=== PATIENT | male | born 1970 | race Caucasian/White ===

== ENCOUNTER 2019-12-02 10:55 | Emergency (ER) | payer OTHER ==
[~2019-12-02] VITALS: Ht 327.7 cm; Wt 114.0 kg
[2019-12-02] MEDS ORDERED: METO-467 PO (12:39)
[2019-12-02] MEDS ORDERED: ATOR10TA PO (12:41)
[2019-12-02] MEDS ORDERED: METF500T PO (12:43)
--- NOTE | 2019-12-02 13:00 | NUR ---
resting no s.s of distress
--- NOTE | 2019-12-02 13:10 | NUR ---
Breaking primary RN, pt. given lunch tray.
[2019-12-02 13:15] LABS: BASOPHILS % (AUTO) 0.6 % (0-1); EOSINOPHILS # (AUTO) 0.1 X10'3 (0-0.9); HEMOGLOBIN 15.2 g/dl (14.0-17.9); LYMPHOCYTES # (AUTO) 1.9 X10'3 (1.1-4.8); LYMPHOCYTES % (AUTO) 30.5 % (21-51); MEAN CORPUSCULAR HEMOGLOBIN 28.8 PG (27.0-31.0); MEAN CORPUSCULAR HGB CONC 33.8 g/dL (33.0-36.5); MEAN CORPUSCULAR VOLUME 85.2 FL (78-98); MEAN PLATELET VOLUME 7.2 FL (7.4-10.4); MONOCYTES # (AUTO) 0.3 X10'3 (0-0.9); MONOCYTES % (AUTO) 5.3 % (2-12); NEUTROPHILS # (AUTO) 3.8 X10'3 (1.8-7.7); NEUTROPHILS % (AUTO) 61.6 % (42-75); PLATELET COUNT 230 X10'3 (140-440); RED BLOOD COUNT 5.28 X10'6 (4.70-6.10); RED CELL DISTRIBUTION WIDTH 13.4 % (11.5-14.5); WHITE BLOOD COUNT 6.2 X10'3 (4.5-11.0)
[2019-12-02 13:21] LABS: URINE AMPHETAMINE SCREEN NEGATIVE (Neg); URINE BARBITUATE SCREEN NEGATIVE (Neg); URINE BENZODIAZEPINES SCREEN NEGATIVE (Neg); URINE CANNABINOID SCREEN NEGATIVE (Neg); URINE COCAINE SCREEN NEGATIVE (Neg); URINE METHADONE SCREEN NEGATIVE (Neg); URINE OPIATE SCREEN NEGATIVE (Neg); URINE PHENCYCLIDINE SCREEN NEGATIVE (Neg)
[2019-12-02 13:28] LABS: ALANINE AMINOTRANSFERASE 25 U/L (12-78); ALBUMIN 3.1 G/DL (3.4-5.0); ALBUMIN/GLOBULIN RATIO 0.8 (1.1-1.5); ALKALINE PHOSPHATASE 217 IU/L (46-116); ANION GAP 4 (8-16); ASPARTATE AMINO TRANSFERASE 15 U/L (10-37); BILIRUBIN,TOTAL 0.6 MG/DL (0.1-1.0); BLOOD UREA NITROGEN 17 MG/DL (7-18); BUN/CREATININE RATIO 14.3 (5.4-32.0); CALCIUM 8.6 MG/DL (8.5-10.1); CHLORIDE 105 MMOL/L (99-107); CREATININE 1.19 MG/DL (0.60-1.10); ETHANOL < 0.010 GM/DL (0.0-0.010); GLUCOSE 258 MG/DL (70-104); POTASSIUM 4.2 MMOL/L (3.5-5.1); SODIUM 138 MMOL/L (135-145); TOTAL CARBON DIOXIDE 28.8 MMOL/L (24-32); TOTAL PROTEIN 7.1 G/DL (6.4-8.2); eGFR 65 ML/MIN
[2019-12-02] MEDS ORDERED: enoxaparin 100mg/ml syringe SUBCUT ONE (13:45)
[2019-12-02] MEDS ORDERED: enoxaparin 80mg/0.8ml syringe SUBCUT ONE (13:50)
[2019-12-02] MEDS ORDERED: enoxaparin 30mg/0.3ml syringe SUBCUT ONE (13:50)
--- NOTE | 2019-12-02 14:00 | NUR ---
resting no s.s of distress
[2019-12-02] MEDS ORDERED: APIX5TAB3 PO (14:14)
--- NOTE | 2019-12-02 15:00 | NUR ---
resting no s.s of distress
--- NOTE | 2019-12-02 16:00 | NUR ---
resting no s.s of distress
--- NOTE | 2019-12-02 17:00 | NUR ---
resting no s.s of distress
--- NOTE | 2019-12-02 18:00 | NUR ---
resting no s.s of distress
--- NOTE | 2019-12-02 18:40 | NUR ---
Received report and assumed care of patient from KRYSTLE Lai. The patient is resting on his bed. No s/s of distress.
[2019-12-02 19:18] LABS: CLARITY,URINE CLEAR (Clear); COLOR,URINE YELLOW (Yellow); GLUCOSE, URINE 500 mg/dl (Neg); KETONES,URINE 40 mg/dl (Neg); LEUKOCYTE ESTERASE ,URINE NEGATIVE (Neg); NITRITES, URINE NEGATIVE (Neg); OCCULT BLOOD,URINE TRACE-INTACT (Neg); PROTEIN,URINE NEGATIVE (Neg); UROBILINOGEN,URINE 0.2 E.U/dL (0.2-1.0)
[2019-12-02 19:23] LABS: BACTERIA,URINE FEW /HPF (Neg); MUCUS STRANDS FEW /LPF (Neg); RBC,URINE 0-2 /HPF (0-2); SQUAMOUS EPITHELIAL CELL,UR FEW /LPF (FEW); UA COLLECTION TYPE CLN CATCH MIDSTREAM; WBC,URINE 0-4 /HPF (0-4)
--- NOTE | 2019-12-02 19:34 | NUR ---
The patient is being evaluated by KRYSTLE Bartholomew from [facility].
[2019-12-02] MEDS ORDERED: METF-436 PO (20:53)
[2019-12-02] MEDS ORDERED: ATOR10TA70 PO (20:53)
[2019-12-02] MEDS ORDERED: diphenhydrAMINE 25mg capsule PO ONE (21:45)
[2019-12-02] MEDS ORDERED: gabapentin 100mg capsule PO ONE (21:45)
[2019-12-02] MEDS ORDERED: acetaminophen 325mg tablet PO ONE (21:50)
--- NOTE | 2019-12-03 03:07 | NUR ---
PT SLEEPING. LYINING ON HIS LEFT SIDE WITH BLANKETS COVERING TO HIS CHEST. RR 14 AND UNLABORED. SITTER AND RN WITHIN VIEW OF PT AAT.
[2019-12-03 05:12] VITALS: BP_DIAS 77
--- NOTE | 2019-12-03 07:00 | NUR ---
Received Pt in bed sleeping w/o distress. Received report and continue to monitor Pt.
[2019-12-03] MEDS ORDERED: apixaban 5mg tablet PO SCH (08:00)
[2019-12-03] MEDS ORDERED: atorvastatin 10mg tablet PO SCH (08:00)
[2019-12-03] MEDS ORDERED: metFORMIN 500mg tablet PO SCH (08:00)
[2019-12-03] MEDS ORDERED: metoprolol tartrate 50mg tablet PO SCH (08:00)
[2019-12-03 08:27] VITALS: BP_SYST 130
--- NOTE | 2019-12-03 08:30 | NUR ---
Pt awoke and ate breakfast. He took AM medications except metformin, due to having received contrast in the last 48 hrs. Pt remains depressed and hopeless r/t not having money and unable to find work. Pleasant and cooperative in conversation.
--- NOTE | 2019-12-03 10:00 | NUR ---
Received call from [facility] stating Pt has been accepted at [facility]. Talked with charge nurse at [facility] who stated they will be accepting Pt and nurse to nurse report given.
[2019-12-03] MEDS ORDERED: GABA-532 PO (12:33)
== END 2019-12-03 11:05 ==
LOC: ER 10:55
DX: R45.851 Suicidal ideations (principal); R07.9 Chest pain, unspecified; R06.02 Shortness of breath; I26.99 Other pulmonary embolism without acute cor pulmonale; I25.2 Old myocardial infarction; F17.200 Nicotine dependence, unspecified, uncomplicated; Z98.890 Other specified postprocedural states; Z88.0 Allergy status to penicillin; Z79.899 Other long term (current) drug therapy
CPT/HCPCS: 36415; 80053; 80305; 80320; 81001; 82948; 84443; 85025; 96372; 99285; J1650; Q0163

== ENCOUNTER 2019-12-03 10:22 | Inpatient (IN) | payer OTHER ==
[~2019-12-03] VITALS: Ht 175.3 cm; Wt 124.0 kg
[~2019-12-03 10:22] MED LIST: APIX5TAB3 PO; ATOR10TA PO; ATOR10TA70 PO; METF-436 PO; METF500T PO; METO-467 PO
[2019-12-03] MEDS ORDERED: loperamide 2mg capsule PO PRN (10:30)
[2019-12-03] MEDS ORDERED: diphenhydrAMINE 25mg capsule PO PRN (10:30)
[2019-12-03] MEDS ORDERED: magnesium hydroxide 30ml (MOM) UD suspension PO PRN (10:30)
[2019-12-03] MEDS ORDERED: acetaminophen 325mg tablet PO PRN (10:30)
[2019-12-03] MEDS ORDERED: hydrOXYzine 25 MG tablet PO PRN (10:30)
[2019-12-03] MEDS ORDERED: haloperidol 5mg tablet PO PRN (10:30)
[2019-12-03] MEDS ORDERED: mag hydrox/Alum hydrox/simeth 30ml oral suspension PO PRN (10:30)
--- NOTE | 2019-12-03 12:09 | NUR ---
Admit note: Pt admitted to [facility] on 5150 at 1100 for DTS. PT presents depressed, hopeless, helpless and suicidal. Pt has a plan to overdose on his sleeping pills. Pt is from [place]. 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 PT ran out of gas and money here in [place] and homeless sleeping in his car. Pt has history of Diabetes, MD, heart stents, PE.
[2019-12-03] MEDS ORDERED: GABA-532 PO (12:33)
[2019-12-03] MEDS: acetaminophen 325mg tablet PO PRN (14:32)
--- NOTE | 2019-12-03 14:43 | NUR ---
NURSING PROGRESS NOTE Legal hold: 5150 Client on involuntary status for DTS Report received from nurse JENNIFER Carlisle Why are they here: Pt presented to the ER complaining of suicidal ideation. Patient reports he has pretty much lost everything and everyone and he no longer wants to be around anymore. He had a plan to take sleeping pills which he has in his car. Hx of OD x1. When asked if he has any friends or family patient reports that he has brothers but states that "they are not family." Patient notes that he was seen at [facility] last night complaining of some SOB and was diagnosed with "blood clots in his lungs." Patient dates he was given a shot and discharged. Currently he has some left-sided chest pain and some intermittent shortness of breath which he reports is pretty typical for him. He has a history of NM 8 to 9 years ago with 4 stents placed. Patient also complains of some burning with urination and thinks he may be dehydrated. He denies any penile discharge, rash or recent unprotected sex. Assessment What has happened this shift: Pt admitted @1100. He took a shower was oriented to the unit then had lunch. He later watched TV and played cards with another resident. Pt c/o 'sinus pain" and was given Tylenol. S/I, H/I: SI; denies HI A/VH: Denies Sleep: Up this shift ADL's: Independent; showered Group attendance: attended a [employer] social distancing group Were Meds taken: PRN Any med S/E: N/A Mental Status Exam Appearance: average height slightly overweight man with short brown hair in need of a shave Eye contact: Fair Behavior: Calm Speech: low volume; normal rate and rhythm Mood: depressed; hopeless Affect: flat Thought process: Suicidal ideation to overdose on pills Thought Content: "has lost the will to live" Cognition: A/O x3 Insight: Fair Judgment: Poor Interventions PRN's used: Tylenol Therapeutic interventions: Provided 1:1 therapeutic communication and active listening throughout the admission process; PRN Tylenol given for pain in his sinuses, q 15min safety checks. Restraints/seclusion/emergency medication: N/A Justification: Pt is in need of a safe and supportive environment due to his plan of suicidal thoughts to overdose using the pills that are currently in the car he has been living in.
[2019-12-03] MEDS ORDERED: dextrose ORAL solution 15 GM/59 ML bottle PO PRN ×2 (17:20)
[2019-12-03] MEDS ORDERED: glucagon, human recombinant 1mg kit SUBCUT PRN (17:20)
[2019-12-03] MEDS: insulin Lispro (HumaLOG) vial - multi-dose SQ SCH (19:33)
[2019-12-03 20:00] VITALS: BP 133/78
[2019-12-03] MEDS ORDERED: metFORMIN 500mg tablet PO SCH (20:00)
[2019-12-03] MEDS: insulin glargine (Lantus) pen - multi-dose SQ SCH (21:03)
[2019-12-03] MEDS: gabapentin 300mg capsule PO SCH (21:07)
[2019-12-03] MEDS: metoprolol tartrate 50mg tablet PO SCH (21:07)
[2019-12-03] MEDS: apixaban 5mg tablet PO SCH (21:08)
[2019-12-03] MEDS: traZODone 50mg tablet PO PRN (21:57)
--- NOTE | 2019-12-04 | NUR ---
NURSING PROGRESS NOTE Legal hold: 5150 Client on involuntary status for DTS Report received from nurse JENNIFER Carlisle Why are they here: Pt presented to the ER complaining of suicidal ideation. Patient reports he has pretty much lost everything and everyone and he no longer wants to be around anymore. He had a plan to take sleeping pills which he has in his car. Hx of OD x1. When asked if he has any friends or family patient reports that he has brothers but states that "they are not family." Patient notes that he was seen at [facility] last night complaining of some SOB and was diagnosed with "blood clots in his lungs." Patient dates he was given a shot and discharged. Currently he has some left-sided chest pain and some intermittent shortness of breath which he reports is pretty typical for him. He has a history of OK 8 to 9 years ago with 4 stents placed. Patient also complains of some burning with urination and thinks he may be dehydrated. He denies any penile discharge, rash or recent unprotected sex. Assessment What has happened this shift: Patient was up and in group room watching tv. He denied SI and HI at this time. Pt BS was 242 and his Lantus given. Pt requested a prn for sleep and went to bed after meds. S/I, H/I: SI; denies HI A/VH: Denies Sleep: Up this shift ADL's: Independent; showered Group attendance: attended a [employer] social distancing group Were Meds taken: PRN Any med S/E: N/A Mental Status Exam Appearance: average height slightly overweight man with short brown hair in need of a shave Eye contact: Fair Behavior: Calm Speech: low volume; normal rate and rhythm Mood: depressed; hopeless Affect: flat Thought process: Suicidal ideation to overdose on pills Thought Content: "has lost the will to live" Cognition: A/O x3 Insight: Fair Judgment: Poor Interventions PRN's used: Trazodone Therapeutic interventions: Provided 1:1 therapeutic communication and active listening throughout the admission process; PRN Tylenol given for pain in his sinuses, q 15min safety checks. Restraints/seclusion/emergency medication: N/A Justification: Pt is in need of a safe and supportive environment due to his plan of suicidal thoughts to overdose using the pills that are currently in the car he has been living in.
[2019-12-04 07:45] LABS: CHOL/HDL RATIO 6.9 (0.00-4.99); CHOLESTEROL 194 MG/DL (0-200); HDL CHOLESTEROL 28 MG/DL (35-60); LDL CHOLESTEROL 139 MG/DL (50-100); TRIGLYCERIDES 185 MG/DL (20-135)
[2019-12-04 07:49] LABS: HEMOGLOBIN A1C 10.4 % (4.5-6.2)
[2019-12-04 08:00] VITALS: BP 133/69
[2019-12-04] MEDS ORDERED: atorvastatin 10mg tablet PO SCH (08:00)
[2019-12-04] MEDS: gabapentin 300mg capsule PO SCH ×2 (08:24→21:01)
[2019-12-04] MEDS: apixaban 5mg tablet PO SCH ×2 (08:24→21:02)
[2019-12-04] MEDS: metoprolol tartrate 50mg tablet PO SCH ×2 (08:24→21:02)
[2019-12-04] MEDS: metFORMIN 500mg tablet PO SCH ×2 (08:35→20:00)
[2019-12-04] MEDS: insulin Lispro (HumaLOG) vial - multi-dose SQ SCH ×3 (08:43→18:27)
--- NOTE | 2019-12-04 12:34 | NUR ---
DM Consult: A1C 10.4. Pt admit w/ SI s/p taking sleeping pills in car where he lives and hx prior OD on sleeping pills per note. Pt not appropriate for DM ed at this time. Addendum: 12/04/19 at [address] Amended: Links added.
[2019-12-04 15:20] VITALS: BP 141/78
--- NOTE | 2019-12-04 15:35 | NUR ---
NURSING PROGRESS NOTE Legal hold: 5150 Client on involuntary status for DTS Report received from nurse Holloway RN Why are they here: Pt presented to the ER complaining of suicidal ideation. Patient reports he has pretty much lost everything and everyone and he no longer wants to be around anymore. He had a plan to take sleeping pills which he has in his car. Hx of OD x1. When asked if he has any friends or family patient reports that he has brothers but states that "they are not family." Patient notes that he was seen at [facility] last night complaining of some SOB and was diagnosed with "blood clots in his lungs." Patient dates he was given a shot and discharged. Currently he has some left-sided chest pain and some intermittent shortness of breath which he reports is pretty typical for him. He has a history of ME 8 to 9 years ago with 4 stents placed. Patient also complains of some burning with urination and thinks he may be dehydrated. He denies any penile discharge, rash or recent unprotected sex. Assessment What has happened this shift: Pt rated his depression today at a 9/10. He continues to endorse SI with a plan to OD on pills, contracts for safety here. Pt denies AH/VH/HI. Pt has 2+ pitting edema left pretibial and trace left ankle edema, some brownish discoloration of skin of left [place]. 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 Pt states that he has no history of DVTs or PEs in the past, "this is all new for me." Asked pt if he had ever been on blood thinners before. Pt stated he may have been a long time ago. Pt has a HX of ME with 4 stents placed 9 years ago, pt is a diabetic. Pt reported that he had been having diarrhea for about a week, reports he went 8 times yesterday. So far no episodes of diarrhea today. Lungs are clear bilaterally. While this RN was at lunch, pt c/o chest pain. C/o right sided chest pain radiating to right jaw. Pt appeared diaphoretic. Pt also c/o right side pain, right leg "burning", and a NOVA. VS: 141/78, 66, 18, 99% on RA. An EKG was done and read by ER MD, sinus rhythm, normal EKG. Pt's lungs were clear to auscultation, pedal and radial pulses WNL. Pt currently states that the pain has subsided. He is no longer having chest pain, he still has some mild right sided jaw pain and a NOVA which he rates as a 3/10. The hospitalist was notified. Dr Dietz called and said no new orders, just monitor the patient. Dr Grant came to see the patient. It was determined that pt is a smoker, was smoking a pack a day. Pt declined a nicotine patch stating that he is not having nicotine cravings. Pt also reported a Hx of osteomyelitis of his right jaw from dental infection. Dr Grant wll consult with Dr House about possible further testing or cardiac monitoring. S/I, H/I: +SI with plan to OD on pills. A/VH: Pt denies. Sleep: Pt slept 7 hours last night per noc shift report. ADL's: Independent Group attendance: No groups today. Were Meds taken: yes Any med S/E: None noted or reported. Mental Status Exam Appearance: Clean, appropriate, large balding man wearing glasses. Eye contact: Good Behavior: Calm, cooperative Speech: Clear, audible, normal rate and rhythm. Mood: Depressed Affect: Blunted, depressed Thought process: Linear Thought Content: Ruminates on hopelessness of his situation. Cognition: A/O X 4 Insight: Fair Judgment: Fair Interventions PRN's used: None Therapeutic interventions: 1:1 assessment, establishment of rapport, encouragement to express thoughts and feelings, active listening, therapeutic conversation, ensured contract for safety, Q 15min safety checks. Restraints/seclusion/emergency medication: N/A Justification: Pt needs crisis interruption and medication adjustment and monitoring in a safe and therapeutic environment to prevent self harm. Pt is homeless.
--- NOTE | 2019-12-04 17:04 | NUR ---
Spoke with [employer] Offbearer about moving pt to Tele. PT will be moved on Noc shift.
[2019-12-04] MEDS: acetaminophen 325mg tablet PO PRN ×2 (18:01→23:27)
--- NOTE | 2019-12-04 18:02 | NUR ---
CORRECTION: Pt states his history of osteomyelitis and jaw surgery was on his left side not his right. Pt continues to c/o mild to mod right jaw pain, "it just feels weird." PRN Tylenol given at 1801. Plan is for pt to be transferred to a telemetry unit [facility] for monitoring.
[2019-12-04 19:30] VITALS: BP 116/68
[2019-12-04] MEDS: insulin glargine (Lantus) pen - multi-dose SQ SCH (21:06)
[2019-12-04] MEDS: mirtazapine 15mg tablet PO SCH (21:23)
--- NOTE | 2019-12-04 21:52 | NUR ---
TRANSFER NOTE Patient transferred to tele at 2130 Vt's 116/68 R16 P76 T98.4 Report given to tele nurse. And pt left via Wheel chair with estela escort.
[2019-12-04 22:00] VITALS: BP 115/69
--- NOTE | 2019-12-04 22:00 | NUR ---
Arrived on PCU at approx 2200 transferred from wheelchair to bed. Sitter in room, 2 RN skin check completed, vital signs obtained and stable. Will continue to monitor.
[2019-12-04] MEDS: traZODone 50mg tablet PO PRN (22:26)
[2019-12-04] MEDS: LORazepam 1 MG tablet PO PRN (22:45)
[2019-12-04] MEDS ORDERED: nitroGLYCERIN 0.4mg SUBLingual tab SL PRN (23:10)
[2019-12-04 23:29] VITALS: BP 106/65
[2019-12-05 02:05] LABS: BASOPHILS # (AUTO) 0.1 X10'3 (0-0.2); BASOPHILS % (AUTO) 0.7 % (0-1); EOSINOPHILS # (AUTO) 0.1 X10'3 (0-0.9); HEMATOCRIT 39.2 % (42.0-52.0); HEMOGLOBIN 13.3 g/dl (14.0-17.9); LYMPHOCYTES # (AUTO) 2.7 X10'3 (1.1-4.8); LYMPHOCYTES % (AUTO) 37.8 % (21-51); MEAN CORPUSCULAR HGB CONC 33.9 g/dL (33.0-36.5); MEAN CORPUSCULAR VOLUME 85.5 FL (78-98); MEAN PLATELET VOLUME 7.3 FL (7.4-10.4); MONOCYTES # (AUTO) 0.5 X10'3 (0-0.9); NEUTROPHILS # (AUTO) 3.7 X10'3 (1.8-7.7); NEUTROPHILS % (AUTO) 52.5 % (42-75); PLATELET COUNT 200 X10'3 (140-440); RED BLOOD COUNT 4.59 X10'6 (4.70-6.10); RED CELL DISTRIBUTION WIDTH 13.4 % (11.5-14.5); WHITE BLOOD COUNT 7.1 X10'3 (4.5-11.0)
[2019-12-05 02:15] LABS: ALANINE AMINOTRANSFERASE 28 U/L (12-78); ALBUMIN 2.6 G/DL (3.4-5.0); ALBUMIN/GLOBULIN RATIO 0.8 (1.1-1.5); ALKALINE PHOSPHATASE 171 IU/L (46-116); ANION GAP 8 (8-16); ASPARTATE AMINO TRANSFERASE 28 U/L (10-37); BILIRUBIN,TOTAL 0.4 MG/DL (0.1-1.0); BLOOD UREA NITROGEN 18 MG/DL (7-18); CALCIUM 8.4 MG/DL (8.5-10.1); CHLORIDE 106 MMOL/L (99-107); GLUCOSE 148 MG/DL (70-104); POTASSIUM 3.4 MMOL/L (3.5-5.1); SODIUM 138 MMOL/L (135-145); TOTAL CARBON DIOXIDE 24.5 MMOL/L (24-32); eGFR 79 ML/MIN
[2019-12-05] MEDS ORDERED: potassium CL 10mEq/100ml bag 100 ML IV PRN (03:05)
[2019-12-05] MEDS: K and/or MAG REPLACEMENT MC SCH ×3 (03:05→19:18)
[2019-12-05] MEDS ORDERED: magnesium Cl slow-release 64mg tablet PO PRN (03:05)
[2019-12-05] MEDS ORDERED: potassium Cl 20 mEq SR tablet PO PRN (03:05)
[2019-12-05] MEDS ORDERED: magnesium 4gm in 100ml NS 100 ML IV PRN (03:05)
[2019-12-05 03:37] LABS: MAGNESIUM 1.5 MG/DL (1.5-2.4)
--- NOTE | 2019-12-05 03:52 | NUR ---
I have reviewed and agree with all medications administered and interventions performed by Kandace. KRYSTLE Orientee documentation: I have reviewed and agree with all interventions, assessments performed and documented by KRYSTLE Jeronimo.
[2019-12-05] MEDS: potassium Cl 20 mEq SR tablet PO PRN ×2 (04:37→19:16)
[2019-12-05 06:08] LABS: PARTIAL THROMBOPLASTIN TIME 30 SECONDS (22-32)
--- NOTE | 2019-12-05 06:23 | NUR ---
Problems reprioritized. Patient report given, questions answered & plan of care reviewed with ranjit Judd.
--- NOTE | 2019-12-05 06:30 | NUR ---
Patient in room U 3011. I have received report from KRYSTLE Leblanc and had the opportunity to ask questions and assume patient care. Patient is currently sleeping in bed, bed locked and low, call light in reach, sitter in room, no acute distress, will continue to monitor.
[2019-12-05 08:00] VITALS: BP 127/82
[2019-12-05] MEDS ORDERED: metFORMIN 500mg tablet PO SCH (08:00)
[2019-12-05] MEDS: insulin Lispro (HumaLOG) vial - multi-dose SQ SCH ×3 (08:37→19:22)
[2019-12-05] MEDS: gabapentin 300mg capsule PO SCH ×2 (08:37→19:16)
[2019-12-05] MEDS: atorvastatin 20mg tablet PO SCH (08:38)
[2019-12-05] MEDS: metFORMIN 500mg tablet PO SCH ×2 (08:40→19:17)
[2019-12-05] MEDS: metoprolol tartrate 50mg tablet PO SCH ×2 (08:40→19:16)
[2019-12-05] MEDS: apixaban 5mg tablet PO SCH ×2 (08:41→19:15)
[2019-12-05 11:00] VITALS: BP 113/67
[2019-12-05 15:00] VITALS: BP 122/71
[2019-12-05 18:00] VITALS: BP 122/71
--- NOTE | 2019-12-05 18:00 | NUR ---
Patient in room U 3011. I have received report from Misty Pollard RN and had the opportunity to ask questions and assume patient care. Addendum: 12/05/19 at 1859 by Genevieve Carbajal RN Amended: Links added.
--- NOTE | 2019-12-05 18:27 | NUR ---
Problems reprioritized. Patient report given, questions answered & plan of care reviewed with KRYSTLE Vallejo.
[2019-12-05 20:00] VITALS: BP 132/75
[2019-12-05] MEDS: insulin glargine (Lantus) pen - multi-dose SQ SCH (21:14)
[2019-12-05] MEDS: LORazepam 1 MG tablet PO PRN (21:15)
[2019-12-05] MEDS: mirtazapine 15mg tablet PO SCH (21:15)
--- NOTE | 2019-12-06 03:23 | NUR ---
NURSING PROGRESS NOTE Legal hold: 5150 Client on involuntary status for DTS Report received from nurse Fernandes RN Why are they here: Pt presented to the ER complaining of suicidal ideation. Patient reports he has pretty much lost everything and everyone and he no longer wants to be around anymore. He had a plan to take sleeping pills which he has in his car. Hx of OD x1. When asked if he has any friends or family patient reports that he has brothers but states that "they are not family." He has a history of AL 8 to 9 years ago with 4 stents placed. Assessment What has happened this shift: Pt returned to [facility] at 1999 from PCU. Pt is calm and cooperative, and medication compliant. When asked if he was still feeling suicidal he responds, "yea, it hasn't changed at all." Pt is quiet and doesn't make good eye contact. Pt reports 4/10 chest pain that "comes and goes", "It is the same exact pains that they sent me to that other unit for, and everything was normal." This nurse consulted with Marcella BROWN, and offered pt 2 mg ativan which he took. This nurse educates pt on prn Nitro, and offers it to him, but he declines saying, "nah this has been happening and that stuff doesn't help it just drops my blood pressure." Ativan appeared to have good effect, and pt did not report anymore chest pain. S/I, H/I: SI; denies HI A/VH: Denies Sleep: Up this shift ADL's: Independent; showered Group attendance: attended a movie social distancing group Were Meds taken: PRN Any med S/E: N/A Mental Status Exam Appearance: average height slightly overweight man with short brown hair in need of a shave Eye contact: Fair Behavior: Calm Speech: low volume; normal rate and rhythm Mood: depressed; hopeless Affect: flat Thought process: Suicidal ideation to overdose on pills Thought Content: "has lost the will to live" Cognition: A/O x3 Insight: Fair Judgment: Poor Interventions PRN's used: ativan 2 mg Therapeutic interventions: Provided 1:1 therapeutic communication and active listening throughout the admission process; PRN Tylenol given for pain in his sinuses, q 15min safety checks. Restraints/seclusion/emergency medication: N/A Justification: Pt is in need of a safe and supportive environment due to his plan of suicidal thoughts to overdose using the pills that are currently in the car he has been living in.
[2019-12-06 07:17] VITALS: BP 113/59
[2019-12-06] MEDS: K and/or MAG REPLACEMENT MC SCH ×2 (08:00→20:00)
[2019-12-06] MEDS: metoprolol tartrate 50mg tablet PO SCH ×2 (08:04→20:00)
[2019-12-06] MEDS: atorvastatin 20mg tablet PO SCH (08:04)
[2019-12-06] MEDS: gabapentin 300mg capsule PO SCH ×2 (08:05→20:56)
[2019-12-06] MEDS: metFORMIN 500mg tablet PO SCH ×2 (08:05→20:56)
[2019-12-06] MEDS: apixaban 5mg tablet PO SCH ×2 (08:05→20:56)
[2019-12-06] MEDS: insulin Lispro (HumaLOG) vial - multi-dose SQ SCH ×3 (08:51→18:31)
--- NOTE | 2019-12-06 17:56 | NUR ---
NURSING PROGRESS NOTE Legal hold: 5150 Client on involuntary status for DTS Report received from nurse Fernandes RN Why are they here: Pt presented to the ER complaining of suicidal ideation. Patient reports he has pretty much lost everything and everyone and he no longer wants to be around anymore. He had a plan to take sleeping pills which he has in his car. Hx of OD x1. When asked if he has any friends or family patient reports that he has brothers but states that "they are not family." He has a history of MA 8 to 9 years ago with 4 stents placed. Assessment What has happened this shift: Pt. asleep at start of shift. Pt.s CBG 205. Noon 117. Pt. took all medications and ate all meals in his room. 1:1 done at bedside. Pt. reports SI without plan. Pt. gives minimal information when interviewed. When asked about feelings of depression, pt. shrugged his shoulders. When asked about source of suicidal feelings pt. shrugged his shoulders. Pt. isolative to his room in AM. Pt. was in community room in afternoon watching movie. S/I, H/I: SI; denies HI A/VH: Denies Sleep: Pt. napped 2 hours today ADL's: Independent Group attendance: Watched movie in community room. Were Meds taken: Yes Any med S/E: N/A Mental Status Exam Appearance: Clean, wearing street clothes. Eye contact: Fair Behavior: Calm, cooperative, withdrawn. Speech: low volume; normal rate and rhythm Mood: depressed, hopeless, anhedonic Affect: flat Thought process: Linear Thought Content: Difficult to assess. Pt. offers minimal info. Cognition: A/O x3 Insight: Fair Judgment: Poor Interventions PRN's used: None Therapeutic interventions: Provided 1:1 therapeutic communication and active listening throughout the admission process; PRN Tylenol given for pain in his sinuses, q 15min safety checks. Restraints/seclusion/emergency medication: N/A Justification: Pt is in need of a safe and supportive environment due to his SI and anhedonia.
[2019-12-06 19:00] VITALS: BP 108/48
[2019-12-06] MEDS: mirtazapine 15mg tablet PO SCH (20:56)
[2019-12-06] MEDS: traZODone 50mg tablet PO PRN (21:10)
[2019-12-06] MEDS: insulin glargine (Lantus) pen - multi-dose SQ SCH (21:17)
--- NOTE | 2019-12-06 23:57 | NUR ---
NURSING PROGRESS NOTE Legal hold: 5250 Client on involuntary status for DTS Report received from nurse Alejo RN Why are they here: Pt presented to the ER complaining of suicidal ideation. Patient reports he has pretty much lost everything and everyone and he no longer wants to be around anymore. He had a plan to take sleeping pills which he has in his car. Hx of OD x1. When asked if he has any friends or family patient reports that he has brothers but states that "they are not family." He has a history of [place] 8 to 9 years ago with 4 stents placed. Assessment What has happened this shift: Pt isolated to his room the entirety of the shift. Pt slept unless he was woken up for vitals, 1:1 assessment, or HS medication pass. PT's HS blood sugar was 117. Covered by Lantus 17 units. Pt still endorses suicidal ideation, but does not stay awake long enough to talk about much else aside from the questions he is asked. Denies HI/AH/VH. S/I, H/I: SI; denies HI A/VH: Denies Sleep: Up this shift ADL's: Independent; showered Group attendance: attended a [employer] social distancing group Were Meds taken: PRN Any med S/E: N/A Mental Status Exam Appearance: average height slightly overweight man with short brown hair in need of a shave Eye contact: Fair Behavior: Calm Speech: low volume; normal rate and rhythm Mood: depressed; hopeless Affect: flat Thought process: Suicidal ideation to overdose on pills Thought Content: "has lost the will to live" Cognition: A/O x3 Insight: Fair Judgment: Poor Interventions PRN's used: trazodone Therapeutic interventions: Provided 1:1 therapeutic communication and active listening throughout the admission process; PRN Tylenol given for pain in his sinuses, q 15min safety checks. Restraints/seclusion/emergency medication: N/A Justification: Pt is in need of a safe and supportive environment due to his plan of suicidal thoughts to overdose using the pills that are currently in the car he has been living in.
[2019-12-07 07:39] VITALS: BP 118/71
[2019-12-07] MEDS: metoprolol tartrate 50mg tablet PO SCH ×2 (07:56→21:16)
[2019-12-07] MEDS: apixaban 5mg tablet PO SCH ×2 (07:56→21:15)
[2019-12-07] MEDS: gabapentin 300mg capsule PO SCH ×2 (07:57→21:15)
[2019-12-07] MEDS: metFORMIN 500mg tablet PO SCH ×2 (07:57→21:16)
[2019-12-07] MEDS: atorvastatin 20mg tablet PO SCH (07:57)
[2019-12-07] MEDS: insulin Lispro (HumaLOG) vial - multi-dose SQ SCH ×3 (08:22→18:08)
[2019-12-07 08:38] LABS: MAGNESIUM 1.4 MG/DL (1.5-2.4); PHOSPHORUS 3.9 MG/DL (2.3-4.5); POTASSIUM 4.1 MMOL/L (3.5-5.1)
[2019-12-07] MEDS: K and/or MAG REPLACEMENT MC SCH ×2 (08:55→20:00)
--- NOTE | 2019-12-07 11:32 | NUR ---
Initial: Pt admitted with depression. Pt currently on a CHO controlled diet with slightly fluctuating PO intake, documented with 75-100% likely closely meeting nutrient needs. LBM 12/05. Skin intact. No nutrition diagnosis at this time. Will continue to follow. Recommendations: 1) Continue CHO controlled diet 2) Monitor need for additional protein for satiety 3) Bowel care PRN 4) Wt per rx Addendum: 12/07/19 at [address] Amended: Links added.
[2019-12-07] MEDS: naproxen 500mg tablet PO SCH (16:45)
--- NOTE | 2019-12-07 17:41 | NUR ---
NURSING PROGRESS NOTE Legal hold: 5250 Client on involuntary status for DTS Report received from Viry Farr RN Why are they here: Pt presented to the ER complaining of suicidal ideation. Patient reports he has pretty much lost everything and everyone and he no longer wants to be around anymore. He had a plan to take sleeping pills which he has in his car. Hx of OD x1. When asked if he has any friends or family patient reports that he has brothers but states that "they are not family." He has a history of MS 8 to 9 years ago with 4 stents placed. Assessment What has happened this shift: Pt. asleep at start of shift. Pt.s CBG 174. Pt. is a level 6 on to the sliding scale hyperglycemia protocol. Pt.'s noon CBG was 154. Pt. took all medications and ate all meals in his room. 1:1 done at bedside. Pt. reports feeling depressed, but when asked about what is causing feelings of depression, pt. states, "I don't know". Pt. denies SI/HI, A/V hallucinations. Pt. denies chest pain. Pt. isolates to room, napping on and off in AM. In afternoon pt. seen in the community room watching movies. Pt. c/o of foot pain and requesting naproxyn. Naproxyn 500mg BID ordered and given with good effect. S/I, H/I: Denies A/VH: Denies Sleep: Pt. napped 2 hours in AM ADL's: Independent. Pt. showered today. Group attendance: Watched movie in community room. Were Meds taken: Yes Any med S/E: None reported/None observed Mental Status Exam Appearance: Clean, wearing street clothes. Eye contact: Fair Behavior: Calm, cooperative, withdrawn. Speech: low volume; normal rate and rhythm Mood: depressed, hopeless, anhedonic Affect: flat Thought process: Linear Thought Content: Difficult to assess. Pt. offers minimal info. Cognition: A/O x3 Insight: Fair Judgment: Poor Interventions PRN's used: Naproxyn. Therapeutic interventions: Provided 1:1 therapeutic communication and active listening throughout the admission process; PRN Tylenol given for pain in his sinuses, q 15min safety checks. Restraints/seclusion/emergency medication: N/A Justification: Pt is in need of a safe and supportive environment due to his anhedonia. Addendum: 12/07/19 at 1806 by Melo Berger RN Pt.'s CBG today were AM 174, Noon 154, and dinner 106. Pt. is level 6 on protocol.
[2019-12-07 19:00] VITALS: BP 120/68
[2019-12-07] MEDS: mirtazapine 15mg tablet PO SCH (21:15)
[2019-12-07] MEDS: traZODone 50mg tablet PO PRN ×2 (21:16→21:43)
[2019-12-07] MEDS: insulin glargine (Lantus) pen - multi-dose SQ SCH (21:19)
--- NOTE | 2019-12-08 00:10 | NUR ---
NURSING PROGRESS NOTE Legal hold: 5250 Client on involuntary status for DTS Report received from nurse Leeann RN Why are they here: Pt presented to the ER complaining of suicidal ideation. Patient reports he has pretty much lost everything and everyone and he no longer wants to be around anymore. He had a plan to take sleeping pills which he has in his car. Hx of OD x1. When asked if he has any friends or family patient reports that he has brothers but states that "they are not family." He has a history of [place] 8 to 9 years ago with 4 stents placed. Assessment What has happened this shift: Pt isolated to his room in the beginning of the shift but eventually is observed watching TV in the rec room. He sits off to the side by himself and is not seen socializing with peers. He is not very talkative with business writer, but answers questions. He still endorses SI, but is vague when asked more about it. Denies HI/AH/VH. "This place is really boring. There is nothing to do here at all." He reports not sleeping well the past 2 nights. Pt given PRN trazodone 50mg x2. HS blood sugar was 131. S/I, H/I: SI; denies HI A/VH: Denies Sleep: Up this shift ADL's: Independent Group attendance:none this shift Were Meds taken: PRN Any med S/E: N/A Mental Status Exam Appearance: wears own clothes Eye contact: Fair Behavior: Calm Speech: low volume; normal rate and rhythm Mood: depressed; hopeless Affect: flat Thought process: Suicidal ideation to overdose on pills Thought Content: "has lost the will to live" Cognition: A/O x3 Insight: Fair Judgment: Poor Interventions PRN's used: trazodonex 2 Therapeutic interventions: Provided 1:1 therapeutic communication and active listening throughout the admission process; PRN Tylenol given for pain in his sinuses, q 15min safety checks. Restraints/seclusion/emergency medication: N/A Justification: Pt is in need of a safe and supportive environment due to his plan of suicidal thoughts to overdose using the pills that are currently in the car he has been living in.
[2019-12-08] MEDS: metFORMIN 500mg tablet PO SCH ×2 (07:37→20:32)
[2019-12-08] MEDS: atorvastatin 20mg tablet PO SCH (07:37)
[2019-12-08] MEDS: gabapentin 300mg capsule PO SCH ×2 (07:37→20:32)
[2019-12-08] MEDS: metoprolol tartrate 50mg tablet PO SCH ×2 (07:37→20:00)
[2019-12-08] MEDS: apixaban 5mg tablet PO SCH ×2 (07:38→20:32)
[2019-12-08 07:39] VITALS: BP 112/61
[2019-12-08] MEDS: K and/or MAG REPLACEMENT MC SCH (08:00)
[2019-12-08] MEDS: naproxen 500mg tablet PO SCH ×2 (09:24→17:49)
[2019-12-08] MEDS: insulin Lispro (HumaLOG) vial - multi-dose SQ SCH ×3 (09:39→18:16)
--- NOTE | 2019-12-08 17:21 | NUR ---
NURSING PROGRESS NOTE Legal hold: 5250 Client on involuntary status for DTS Report received from KRYSTLE Petersen Why are they here: Pt presented to the ER complaining of suicidal ideation. Patient reports he has pretty much lost everything and everyone and he no longer wants to be around anymore. He had a plan to take sleeping pills which he has in his car. Hx of OD x1. When asked if he has any friends or family patient reports that he has brothers but states that "they are not family." He has a history of [place] 8 to 9 years ago with 4 stents placed. Assessment What has happened this shift: Patient awake for morning medications and breakfast. Patient sat in dining room for te rest of the day watching movies. During 1:1, patient states that he is suicidal and has plan to OD on pills. States that he has nothing left to live for, he lost his job, has no family, has lost everything. Patient states that he just doesn't care about anything anymore and wants to be discharged. BGM: 185, 197, 79 S/I, H/I: +SI with plan to OD. A/VH: Denies Sleep: Napped in a.m. ADL's: Independent. Group attendance: NA Were Meds taken: Yes Any med S/E: None noted. Mental Status Exam Appearance: Clean and neat wearing personal attire. Eye contact: Fair Behavior: Calm, cooperative, withdrawn. Speech: low volume; normal rate and rhythm Mood: depressed, hopeless, anhedonic Affect: flat Thought process: Linear Thought Content: Wanting to be discharged. Cognition: A/O x3 Insight: Fair Judgment: Poor Interventions PRN's used: None. Therapeutic interventions: Provided 1:1 therapeutic communication and active listening; medication administration/education/monitoring, q 15min safety checks. Restraints/seclusion/emergency medication: N/A Justification: Pt is in need of a safe and supportive environment while patient stabilizes to prevent re-admission and adverse outcome.
[2019-12-08 19:00] VITALS: BP 99/66
[2019-12-08] MEDS: insulin glargine (Lantus) pen - multi-dose SQ SCH (20:31)
[2019-12-08] MEDS: mirtazapine 15mg tablet PO SCH (20:43)
[2019-12-08] MEDS ORDERED: QUEtiapine 25mg tablet PO SCH (21:00)
--- NOTE | 2019-12-09 03:17 | NUR ---
NURSING PROGRESS NOTE Legal hold: 6920 Client on involuntary status for DTS Report received from Viry Farr RN Why are they here: Pt presented to the ER complaining of suicidal ideation. Patient reports he has pretty much lost everything and everyone and he no longer wants to be around anymore. He had a plan to take sleeping pills which he has in his car. Hx of OD x1. When asked if he has any friends or family patient reports that he has brothers but states that "they are not family." He has a history of [place] 8 to 9 years ago with 4 stents placed. Assessment What has happened this shift: Received patient sleeping in his room. Spent most of early evening in the recreation room watching TV. Patient ate all his meal and requested for snacks. Took all his medications without a problem. Patient is aware of medications hes is taking what they are for. BG was 157 @ 2100. No diabetic reaction. Currently on Level 5 on hyperglycemia protocol. Encouraged patient to communicate by asking open ended questions. Stated that he is here because he is severely depressed and he feels hopeless. When asked what therapeutic things he does to combat his depression, he states Im doing my best. No suicidal thoughts or hallucinations. Slept without a problem. S/I, H/I: Denies A/VH: Denies Sleep: See sleep assessment ADL's: Independent. Group attendance: Watched movie in recreation room. Were Meds taken: Yes Any med S/E: None reported/None observed Mental Status Exam Appearance: Clean, neat, wearing green scrubs Eye contact: Fair Behavior: Withdrawn Speech: normal rate, low volume Mood: depressed, hopeless, solemn mood Affect: flat Thought process: Linear Thought Content: Undetermined, reserved and guarded with information Cognition: A/O x3 Insight: Fair Judgment: Poor Interventions PRN's used: None Therapeutic interventions: Therapeutic conversation, open ended questions, calm and supportive approach, frequent safety checks. Addendum: 12/09/19 at 0455 jonn Bright RN Received report from Leeann DALTON.
[2019-12-09] MEDS: apixaban 5mg tablet PO SCH ×2 (07:58→20:33)
[2019-12-09] MEDS: metFORMIN 500mg tablet PO SCH ×2 (07:58→20:34)
[2019-12-09] MEDS: duloxetine 30mg CAPSULE.DR PO SCH (07:58)
[2019-12-09] MEDS: atorvastatin 20mg tablet PO SCH (07:58)
[2019-12-09] MEDS: gabapentin 300mg capsule PO SCH ×2 (07:59→20:35)
[2019-12-09 08:00] VITALS: BP 116/66
[2019-12-09] MEDS: metoprolol tartrate 50mg tablet PO SCH ×2 (08:00→20:34)
[2019-12-09] MEDS: insulin Lispro (HumaLOG) vial - multi-dose SQ SCH ×3 (08:31→18:09)
[2019-12-09] MEDS: naproxen 500mg tablet PO SCH ×2 (08:33→17:34)
--- NOTE | 2019-12-09 12:08 | NUR ---
NURSING PROGRESS NOTE Legal hold: 5250 Client on involuntary status for DTS Report received from Noc RN Why are they here: Pt presented to the ER complaining of suicidal ideation. Patient reports he has pretty much lost everything and everyone and he no longer wants to be around anymore. He had a plan to take sleeping pills which he has in his car. Hx of OD x1. When asked if he has any friends or family patient reports that he has brothers but states that "they are not family." He has a history of [place] 8 to 9 years ago with 4 stents placed. Assessment What has happened this shift: Patient asleep at shift change. He was easily awakened. He took all of his medications as prescribed. He is calm, cooperative, and low energy. His BG was 173 in the morning and he is a level 5. He says his blood sugars range all over the place. S/I, H/I: +SI with plan to OD. A/VH: Denies Sleep: Napped in a.m, adequate ADL's: Independent. Group attendance: NA Were Meds taken: Yes Any med S/E: None noted. Mental Status Exam Appearance: Clean and neat wearing personal attire. Eye contact: Good Behavior: Calm, cooperative, withdrawn, glum Speech: low volume; normal rate and rhythm Mood: overwhelmed and annoyed Affect: flat Thought process: Linear Thought Content: I want to go home Cognition: A/O x 4 Insight: Poor Judgment: Poor Interventions PRN's used: Naprosyn Therapeutic interventions: Provided 1:1 therapeutic communication and active listening; medication administration/education/monitoring, q 15min safety checks. Restraints/seclusion/emergency medication: N/A Justification: Pt is in need of a safe and supportive environment while patient stabilizes to prevent re-admission and adverse outcome.
--- NOTE | 2019-12-09 13:04 | NUR ---
Dietary RC: Receiving requests for additional snacks between meals on carb controlled diet such as cheese sticks. Pt PO 75-100% meals; cheese stick TID and double proteins TIDWM added to aid in satiety; dietary notified. Addendum: 12/09/19 at [address] Amended: Links added.
[2019-12-09 19:00] VITALS: BP 120/57
[2019-12-09] MEDS: mirtazapine 15mg tablet PO SCH (20:32)
[2019-12-09] MEDS: QUEtiapine 25mg tablet PO SCH (20:33)
[2019-12-09] MEDS: insulin glargine (Lantus) pen - multi-dose SQ SCH (21:13)
--- NOTE | 2019-12-10 02:23 | NUR ---
NURSING PROGRESS NOTE Legal hold: 5250 Client on involuntary status for DTS Report received from Leeann RODRIGUEZ Why are they here: Pt presented to the ER complaining of suicidal ideation. Patient reports he has pretty much lost everything and everyone and he no longer wants to be around anymore. He had a plan to take sleeping pills which he has in his car. Hx of OD x1. When asked if he has any friends or family patient reports that he has brothers but states that "they are not family." He has a history of [place] 8 to 9 years ago with 4 stents placed. Assessment What has happened this shift: Patient awake in room lying in bed at start of shift. C/o being unable to sleep. Explained to pt too early for HS meds. Reviewed all medications with pt. Pt came to group room watched some TV Played [employer] Blood Sugar 107 at HS did not require coverage Lantus given per protocol. S/I, H/I: +SI with plan to OD. A/VH: Denies Sleep: Asleep at this time Group attendance: NA Were Meds taken: Yes Any med S/E: None noted. Mental Status Exam Appearance: Clean and neat wearing personal attire. Eye contact: Good Behavior: Calm, cooperative, withdrawn, glum Speech: low volume; normal rate and rhythm Mood: overwhelmed and annoyed Affect: flat Thought process: Linear Thought Content: I want to go home Cognition: A/O x 4 Insight: Poor Judgment: Poor Interventions PRN's used: Naprosyn Therapeutic interventions: Provided 1:1 therapeutic communication and active listening; medication administration/education/monitoring, q 15min safety checks. Restraints/seclusion/emergency medication: N/A Justification: Pt is in need of a safe and supportive environment while patient stabilizes to prevent re-admission and adverse outcome.
[2019-12-10 08:00] VITALS: BP 100/60
[2019-12-10] MEDS: metoprolol tartrate 50mg tablet PO SCH ×2 (08:00→20:42)
[2019-12-10] MEDS: insulin Lispro (HumaLOG) vial - multi-dose SQ SCH ×3 (08:21→18:33)
[2019-12-10] MEDS: apixaban 5mg tablet PO SCH ×2 (08:22→20:42)
[2019-12-10] MEDS: metFORMIN 500mg tablet PO SCH ×2 (08:22→20:43)
[2019-12-10] MEDS: duloxetine 30mg CAPSULE.DR PO SCH (08:22)
[2019-12-10] MEDS: naproxen 500mg tablet PO SCH ×2 (08:22→17:59)
[2019-12-10] MEDS: atorvastatin 20mg tablet PO SCH (08:22)
[2019-12-10] MEDS: gabapentin 300mg capsule PO SCH ×2 (08:22→20:41)
--- NOTE | 2019-12-10 15:16 | NUR ---
NURSING PROGRESS NOTE Legal hold: 5250 Client on involuntary status for DTS Report received from Noc RN Why are they here: Pt presented to the ER complaining of suicidal ideation. Patient reports he has pretty much lost everything and everyone and he no longer wants to be around anymore. He had a plan to take sleeping pills which he has in his car. Hx of OD x1. When asked if he has any friends or family patient reports that he has brothers but states that "they are not family." He has a history of [place] 8 to 9 years ago with 4 stents placed. Assessment What has happened this shift: Patient asleep at shift change. He was easily awakened. He took all of his medications as prescribed. He is calm, cooperative, and low energy. Pt cooperative with blood glucose checks. Pt continues to endorse thoughts of suicide and depression. Pt affect remains flat all shift. Pt did sit up in dayroom most of shift, a lot of the time, alone with the lights out. In am, pt did c/o constipation and pt was given MOM with results of BM soon after. S/I, H/I: +SI with plan to OD. A/VH: Denies Sleep: Napped in a.m, adequate ADL's: Independent. Group attendance: NA Were Meds taken: Yes Any med S/E: None noted. Mental Status Exam Appearance: Clean and neat wearing personal attire. Eye contact: Good Behavior: Calm, cooperative, withdrawn, glum Speech: low volume; normal rate and rhythm Mood: depressed Affect: flat Thought process: Linear Thought Content: I want to go home Cognition: A/O x 4 Insight: Poor Judgment: Poor Interventions PRN's used: MOM Therapeutic interventions: Provided 1:1 therapeutic communication and active listening; medication administration/education/monitoring, q 15min safety checks. Restraints/seclusion/emergency medication: N/A Justification: Pt is in need of a safe and supportive environment while patient stabilizes to prevent re-admission and adverse outcome.
--- NOTE | 2019-12-10 16:41 | NUR ---
1:1-CBT/DBT Goal: facilitating & supporting the change process Presenting Issues: Pt's currently on 5250 as he continues to endorse SI with plan to overdose. 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 It was also noted that pt had been driving dropping in on family members, possibly saying good-bye to them, visited parents' grave, visited a friend that he hasn't seen in 20 years and ended up in [place] and ran out of gas. Pt currently experience significant anxiety associated with life stressors (jobless & homeless). While pt continues to endorse sxs associated with depression, he is more focused on solving his current problems, pt is fixated on "if I can get back into a mining job then all this will be ok". Pt's so fixated on his stressors that he is unable to appreciate the current reality, that is much of the nation is experiencing high jobless rate and unable to break his problems down to smaller less distressing ones. Interventions: SS met w/pt utilized CBT, DBT & NE strategies to move pt from a state of pre-contemplation where he spends his time focused on his problems associated with be jobless and not aware of the consequences of not addressing needs post-d/c; to a state of active contemplation-where pt gains an awareness of the consequences of not addressing his lack of intermediate, food & an income. Pt was able to clearly articulated what he needs to look for jobs however, he demonstrated very little awareness/appreciation of the current public health crisis that's impacting all sectors of the [place] economy at this time and therefore, unable to see how a community homeless intermediate can "help me". Pt reports, "honestly, I can't see myself staying in a place like that". Pt asked to think about a discharge destination and we'll explore it as a possible d/c destination tomorrow. SS also spent time assisting pt in accessing his e-mail account, checking his bank balance. Plan: SS will continue to provide 1:1 Individual Psychotherapeutic support to facilitate dcp. Manuela Colon LCSW Addendum: 12/10/19 at 1715 by Manuela FARAH Amended: Links added.
[2019-12-10 19:00] VITALS: BP 89/62
[2019-12-10] MEDS: QUEtiapine 25mg tablet PO SCH (20:42)
[2019-12-10] MEDS: mirtazapine 15mg tablet PO SCH (20:43)
[2019-12-10] MEDS: insulin glargine (Lantus) pen - multi-dose SQ SCH (20:46)
--- NOTE | 2019-12-11 01:28 | NUR ---
NURSING PROGRESS NOTE Legal hold: 5250 Client on involuntary status for DTS Report received from Noc RN Why are they here: Pt presented to the ER complaining of suicidal ideation. Patient reports he has pretty much lost everything and everyone and he no longer wants to be around anymore. He had a plan to take sleeping pills which he has in his car. Hx of OD x1. When asked if he has any friends or family patient reports that he has brothers but states that "they are not family." He has a history of [place] 8 to 9 years ago with 4 stents placed. Assessment What has happened this shift: Pt sitting in group room playing Angiodroid. Pt says he is still depressed with SI with plan to OD. Pt says he still feels hopeless. Pt gives short answers to questions does not volunteer information. Pt cooperative with care. Took all meds. Blood Sugar at HS 153. S/I, H/I: +SI with plan to OD. A/VH: Denies Sleep: Napped in a.m, adequate ADL's: Independent. Group attendance: NA Were Meds taken: Yes Any med S/E: None noted. Mental Status Exam Appearance: Clean and neat wearing personal attire. Eye contact: Good Behavior: Calm, cooperative, withdrawn, glum Speech: low volume; normal rate and rhythm Mood: depressed Affect: flat Thought process: Linear Thought Content: I want to go home Cognition: A/O x 4 Insight: Poor Judgment: Poor Interventions PRN's used: none Therapeutic interventions: Provided 1:1 therapeutic communication and active listening; medication administration/education/monitoring, q 15min safety checks. Restraints/seclusion/emergency medication: N/A Justification: Pt is in need of a safe and supportive environment while patient stabilizes to prevent re-admission and adverse outcome.
[2019-12-11] MEDS: duloxetine 30mg CAPSULE.DR PO SCH (07:39)
[2019-12-11] MEDS: metFORMIN 500mg tablet PO SCH ×2 (07:39→20:47)
[2019-12-11] MEDS: atorvastatin 20mg tablet PO SCH (07:39)
[2019-12-11] MEDS: apixaban 5mg tablet PO SCH ×2 (07:39→20:46)
[2019-12-11] MEDS: gabapentin 300mg capsule PO SCH ×2 (07:41→20:46)
[2019-12-11 07:52] VITALS: BP 116/67
[2019-12-11] MEDS: metoprolol tartrate 50mg tablet PO SCH ×2 (08:00→20:46)
[2019-12-11] MEDS: insulin Lispro (HumaLOG) vial - multi-dose SQ SCH ×3 (08:22→18:15)
[2019-12-11] MEDS: naproxen 500mg tablet PO SCH ×2 (08:31→18:13)
--- NOTE | 2019-12-11 17:15 | NUR ---
NURSING PROGRESS NOTE Legal hold: 5250 Client on involuntary status for DTS Report received from KRYSTLE Loya Why are they here: Pt presented to the ER complaining of suicidal ideation. Patient reports he has pretty much lost everything and everyone and he no longer wants to be around anymore. He had a plan to take sleeping pills which he has in his car. Hx of OD x1. When asked if he has any friends or family patient reports that he has brothers but states that "they are not family." He has a history of [place] 8 to 9 years ago with 4 stents placed. Assessment What has happened this shift: Patient awakened early for BGM, medications, and breakfast. Patient is quiet today and is isolating to his room, sleeping. Patient is depressed and hopeless and continues to endorse SI. Propanolol was held due to a pulse of 59. Blood glocuse monitoring is: 147, 167, 95. S/I, H/I: +SI with plan to OD. A/VH: Denies Sleep: 7.5 hrs NOC, napped. ADL's: Independent. Group attendance: NA Were Meds taken: Yes Any med S/E: None noted. Mental Status Exam Appearance: Well groomed in personal attire. Eye contact: Good Behavior: Calm, cooperative, withdrawn, isolative. Speech: low volume; normal rate and rhythm Mood: depressed Affect: flat Thought process: Linear Thought Content: I want to go home Cognition: A/O x 4 Insight: Poor Judgment: Poor Interventions PRN's used: MOM Therapeutic interventions: Provided 1:1 therapeutic communication and active listening; medication administration/education/monitoring, q 15min safety checks. Restraints/seclusion/emergency medication: N/A Justification: Pt is in need of a safe and supportive environment while patient stabilizes to prevent re-admission and adverse outcome.
[2019-12-11 19:56] VITALS: BP 131/70
[2019-12-11] MEDS: mirtazapine 15mg tablet PO SCH (20:47)
[2019-12-11] MEDS: QUEtiapine 25mg tablet PO SCH ×2 (20:47→22:02)
[2019-12-11] MEDS: insulin glargine (Lantus) pen - multi-dose SQ SCH (20:49)
--- NOTE | 2019-12-12 00:42 | NUR ---
NURSING PROGRESS NOTE Legal hold: 5250 Client on involuntary status for DTS Report received from Leeann DALTON Why are they here: Pt presented to the ER complaining of suicidal ideation. Patient reports he has pretty much lost everything and everyone and he no longer wants to be around anymore. He had a plan to take sleeping pills which he has in his car. Hx of OD x1. When asked if he has any friends or family patient reports that he has brothers but states that "they are not family." He has a history of [place] 8 to 9 years ago with 4 stents placed. Assessment What has happened this shift: Pt in group room most of shift, enjoying a couple of movies. During 1:1, pt stated he is feeling less anxious and depressed and the SI "comes and goes but I am not currently feeling that way." Pt talked about stories of when he lived in the [facility], and experience with the culture over there. Pt conversational. Pt states he is bored here and finds himself sleeping a lot because "there isn't much else to do". Pt compliant with medications, requested may repeat dose of Seroquel this evening prior to retiring to sleep. Blood Sugar at HS 132. S/I, H/I: Denies both A/VH: Denies both Sleep: See Sleep Assessment ADL's: Independent. Group attendance: NA Were Meds taken: Yes Any med S/E: None observed nor reported Mental Status Exam Appearance: Clean, wearing personal clothing and nonskid socks Eye contact: Good Behavior: Cooperative, watching movies, calm Speech: Clear, Normal rate Mood: "Bored" Affect: Blunted with occasional brightening Thought process: Linear Thought Content: Bored, feeling better Cognition: A/Ox4 Insight: Fair Judgment: Fair Interventions PRN's used: None Therapeutic interventions: Provided 1:1 therapeutic communication and active listening; medication administration/education/monitoring, q 15min safety checks. Restraints/seclusion/emergency medication: N/A Justification: Pt is in need of a safe and supportive environment while patient stabilizes to prevent re-admission and adverse outcome.
[2019-12-12 07:00] VITALS: BP 111/63
[2019-12-12] MEDS: apixaban 5mg tablet PO SCH ×2 (07:58→21:12)
[2019-12-12] MEDS: duloxetine 30mg CAPSULE.DR PO SCH (07:58)
[2019-12-12] MEDS: atorvastatin 20mg tablet PO SCH (07:58)
[2019-12-12] MEDS: gabapentin 300mg capsule PO SCH ×2 (07:58→21:13)
[2019-12-12] MEDS: naproxen 500mg tablet PO SCH ×2 (07:58→18:04)
[2019-12-12] MEDS: metFORMIN 500mg tablet PO SCH ×2 (07:58→21:13)
[2019-12-12] MEDS: metoprolol tartrate 50mg tablet PO SCH ×2 (07:59→21:11)
[2019-12-12] MEDS: insulin Lispro (HumaLOG) vial - multi-dose SQ SCH ×3 (08:39→18:02)
--- NOTE | 2019-12-12 17:31 | NUR ---
NURSING PROGRESS NOTE Legal hold: 5250 Client on involuntary status for DTS Report received from KRYSTLE Loya Why are they here: Pt presented to the ER complaining of suicidal ideation. Patient reports he has pretty much lost everything and everyone and he no longer wants to be around anymore. He had a plan to take sleeping pills which he has in his car. Hx of OD x1. When asked if he has any friends or family patient reports that he has brothers but states that "they are not family." He has a history of [place] 8 to 9 years ago with 4 stents placed. Assessment What has happened this shift: Patient awakened for BGM, meds and breakfast. Pt. Then sitting in group room watching t.v. Patient states that he is dizzy, and thinks it may be the Seroquel that is making him dizzy. Vitals checked P 60 02 98, BP 119/73. Patient then states the dizziness is resolved. Pt. States that he is not feeling suicidal right now. Patient is cooperative and respectful during all interactions. Patient played [place] with group. Blood glucose monitorin, 116, 128 S/I, H/I: Not right now. A/VH: Denies Sleep: napped. ADL's: Independent. Group attendance: Yes Were Meds taken: Yes Any med S/E: Dizziness. Mental Status Exam Appearance: Well groomed in personal attire. Eye contact: Good Behavior: Calm, cooperative, withdrawn, isolative. Speech: low volume; normal rate and rhythm Mood: depressed Affect: flat Thought process: Linear Thought Content: Medication side effects. Cognition: A/O x 4 Insight: Fair. Judgment: Poor Interventions PRN's used: None. Therapeutic interventions: Provided 1:1 therapeutic communication and active listening; medication administration/education/monitoring, q 15min safety checks. Restraints/seclusion/emergency medication: N/A Justification: Pt is in need of a safe and supportive environment while patient stabilizes to prevent re-admission and adverse outcome.
[2019-12-12 19:00] VITALS: BP 126/77
[2019-12-12] MEDS: insulin glargine (Lantus) pen - multi-dose SQ SCH (21:10)
[2019-12-12] MEDS: mirtazapine 15mg tablet PO SCH (21:11)
[2019-12-12] MEDS: QUEtiapine 25mg tablet PO SCH ×2 (21:12→22:05)
--- NOTE | 2019-12-13 | NUR ---
NURSING PROGRESS NOTE Legal hold: 5250 Client on involuntary status for DTS Report received from Dom DALTON Why are they here: Pt presented to the ER complaining of suicidal ideation. Patient reports he has pretty much lost everything and everyone and he no longer wants to be around anymore. He had a plan to take sleeping pills which he has in his car. Hx of OD x1. When asked if he has any friends or family patient reports that he has brothers but states that "they are not family." He has a history of [place] 8 to 9 years ago with 4 stents placed. 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 Pt takes a lot of pride in his work experience and verbalized that there are generally opportunities for work due to not many people having his level of experience. Pt's outlook seems markedly more positive this interaction and pt able to provide good insight as to the trigger that lead to current hospitalization. He discussed the various steps he needs to take to regain employment and options for discharge, some of which he feels are better options than others. Pt compliant with medications, requested may repeat dose of Seroquel this evening prior to retiring to sleep. Blood Sugar at HS 191, HR at time of HS medications reevaluated at a rate of 62. S/I, H/I: Denies both A/VH: Denies both Sleep: See Sleep Assessment ADL's: Independent Group attendance: N/A Were Meds taken: Yes Any med S/E: None observed nor reported Mental Status Exam Appearance: Clean, wearing personal clothing and nonskid socks Eye contact: Good Behavior: Cooperative, watching movies, calm Speech: Clear, Normal rate Mood: "Bored" Affect: Blunted with occasional brightening Thought process: Linear Thought Content: Bored, feeling better Cognition: A/Ox4 Insight: Fair to good Judgment: Fair Interventions PRN's used: Seroquel 50mg with HSMR1 Therapeutic interventions: Provided 1:1 therapeutic communication and active listening; medication administration/education/monitoring, q 15min safety checks. Restraints/seclusion/emergency medication: N/A Justification: Pt is in need of a safe and supportive environment while patient stabilizes to prevent re-admission and adverse outcome.
[2019-12-13 07:00] VITALS: BP 113/63
[2019-12-13] MEDS: apixaban 5mg tablet PO SCH ×2 (07:51→20:57)
[2019-12-13] MEDS: metFORMIN 500mg tablet PO SCH ×2 (07:51→20:57)
[2019-12-13] MEDS: atorvastatin 20mg tablet PO SCH (07:51)
[2019-12-13] MEDS: duloxetine 30mg CAPSULE.DR PO SCH (07:51)
[2019-12-13] MEDS: gabapentin 300mg capsule PO SCH ×2 (07:52→20:57)
[2019-12-13] MEDS: metoprolol tartrate 50mg tablet PO SCH ×2 (07:52→21:05)
[2019-12-13] MEDS: naproxen 500mg tablet PO SCH ×2 (07:52→17:42)
--- NOTE | 2019-12-13 12:30 | NUR ---
Reassessment: Pt PO 100% meals w/ double proteins TIDWM meeting needs. LBM 12/10. No nutrition concerns at this time. Will continue to monitor. Recommendations: 1) Continue CHO controlled diet 2) double protein TIDWM; cheese stick TID 3) Bowel care PRN 4) Wt per rx Addendum: 12/13/19 at [address] Amended: Links added.
--- NOTE | 2019-12-13 13:30 | NUR ---
Nursing Progress Note: Legal hold: 5250 Client on involuntary status for DTS Report received from nurse with use of SBAR: Shalini RN Why are they here: Pt presented to the ER complaining of suicidal ideation. Patient reports he has pretty much lost everything and everyone and he no longer wants to be around anymore. He had a plan to take sleeping pills which he has in his car. Hx of OD x1. When asked if he has any friends or family patient reports that he has brothers but states that "they are not family." He has a history of [place] 8 to 9 years ago with 4 stents placed. Assessment What has happened this shift: Received pt. laying in bed sleeping, he appears to be resting comfortably. Pt. awoke and consumed breakfast, he continues to have a good appetite, and BS remains WNL. He later sat up in the group room watching TV, but he did not attend afternoon group and instead retreated to bed for a nap. 1:1 completed at bedside, pt. appears to be minimizing any MH s/s. He denies S/I, depression, or anxiety and states in a guarded way, "I'm good right now." This life underwriter questioned pt. regarding his plans for discharge and he reported that he is still trying to figure that out with the doctor. He remains homeless at this time with a very limited support system. Pt. remains in bed throughout lunch and the afternoon, and he reports increased fatigued. Will endorse to the MD and Noc shift and continue to monitor. S/I, H/I: Denies A/VH: Denies, does not appear to be internally preoccupied Sleep: Pt. reports he slept well, sleep hours show 7 hours ADL's: Independent Group attendance: No Were meds taken: Yes Any med S/E: Pt. reports increased fatigue, will endorse to MD and continue to monitor. Mental Status Exam Appearance: Neat and appropriately dressed Eye contact: Fair Behavior: Cooperative, fatigued, and withdrawn Speech: Soft, WNL Mood: Guarded Affect: Flat Thought process: Poverty of thought Thought Content: Appears to be minimizing any MH s/s Cognition: A&O Insight: Poor Judgment: Poor to fair Interventions PRN's used: None Therapeutic interventions: Maintained a safe and therapeutic environment, ensured contract for safety, provided clear and simple instructions, provided active listening and positive encouragement, monitored behavior and need for intervention, and maintained Q 15min safety checks. Restraints/seclusion/emergency medication: N/A Justification of Continued Inpatient Treatment: STEPHANIE Tapia, pt. remains hopeless and continues to require a safe and therapeutic environment. He will consider discharge in 24-48 hours.
[2019-12-13] MEDS: insulin Lispro (HumaLOG) vial - multi-dose SQ SCH (18:42)
[2019-12-13 19:48] VITALS: BP 132/66
[2019-12-13] MEDS: mirtazapine 15mg tablet PO SCH (20:57)
[2019-12-13] MEDS: QUEtiapine 25mg tablet PO SCH ×2 (20:58→21:35)
[2019-12-13] MEDS: insulin glargine (Lantus) pen - multi-dose SQ SCH (21:25)
--- NOTE | 2019-12-13 23:03 | NUR ---
Nursing Progress Note: Legal hold: 5250 Client on involuntary status for DTS Report received from nurse with use of SBAR: JENNIFER Carlisle Why are they here: Pt presented to the ER complaining of suicidal ideation. Patient reports he has pretty much lost everything and everyone and he no longer wants to be around anymore. He had a plan to take sleeping pills which he has in his car. Hx of OD x1. When asked if he has any friends or family patient reports that he has brothers but states that "they are not family." He has a history of [place] 8 to 9 years ago with 4 stents placed. Assessment What has happened this shift: Pt was observed in recreation room during shift change and spent some good amount of time there. He was not observed socializing with other patients or staff. He was some what reluctant to engage in conversation as most of his answers were minimal. He states that he feels depressed because he lost his job and feels like he will be filling this way for a while, until his situation changes. He endorses feelings of hopelessness as he doesn't know what to do upon discharge. Pt denies any S/I or H/I at the moment. When asked about this he states not right now. He was cooperative during 1:1 physical assessment and took all his HS meds without any issues. HS BG was 242 and 28 units of Lantus was administered. He requested Seroquel for sleep and also requested a second dose. This was given with good effect. Pt remained isolative until he retired to his room for sleep. S/I, H/I: Denies A/VH: Denies Sleep: Currently sleeping, see sleep assessment for total hours. ADL's: Independent Group attendance: No Were meds taken: Yes Any med S/E: None observed or reported Mental Status Exam Appearance: Appropriately dressed, well groomed Eye contact: Direct Behavior: Cooperative, isolative, somewhat guarded Speech: Soft, normal rate and rhythm, minimal Mood: "I'm good." pt appears depressed and hopeless Affect: Blunted Thought process: Linear Thought Content: Feeling hopeless and not being able to better his current situation Cognition: Alert and oriented X4 Insight: Fair Judgment: Poor to fair Interventions PRN's used: Seroquel X2 Therapeutic interventions: Maintained a safe and therapeutic environment, ensured contract for safety, provided clear and simple instructions, provided active listening and positive encouragement, monitored behavior and need for intervention, and maintained Q 15min safety checks. Restraints/seclusion/emergency medication: N/A Justification of Continued Inpatient Treatment: STEPHANIE Tapia, pt. remains hopeless and continues to require a safe and therapeutic environment. He will consider discharge in 24-48 hours.
[2019-12-14 07:30] VITALS: BP 119/70
[2019-12-14] MEDS: insulin Lispro (HumaLOG) vial - multi-dose SQ SCH ×3 (08:12→18:21)
[2019-12-14] MEDS: apixaban 5mg tablet PO SCH ×2 (08:15→20:54)
[2019-12-14] MEDS: duloxetine 30mg CAPSULE.DR PO SCH (08:15)
[2019-12-14] MEDS: metFORMIN 500mg tablet PO SCH ×2 (08:15→20:54)
[2019-12-14] MEDS: metoprolol tartrate 50mg tablet PO SCH ×2 (08:16→20:00)
[2019-12-14] MEDS: gabapentin 300mg capsule PO SCH ×2 (08:16→20:54)
[2019-12-14] MEDS: naproxen 500mg tablet PO SCH ×2 (08:16→17:27)
[2019-12-14] MEDS: atorvastatin 20mg tablet PO SCH (08:16)
[2019-12-14] MEDS ORDERED: METO50TA16 PO (14:15)
[2019-12-14] MEDS ORDERED: ATOR20TA66 PO (14:15)
[2019-12-14] MEDS ORDERED: MIRT15TA8 PO (14:15)
[2019-12-14] MEDS ORDERED: APIX5TAB3 PO (14:15)
[2019-12-14] MEDS ORDERED: DULO30CA52 PO (14:15)
[2019-12-14] MEDS ORDERED: GABA300C PO (14:15)
[2019-12-14] MEDS ORDERED: NITR0.4T51 SL (14:15)
[2019-12-14] MEDS ORDERED: LANTUS SQ (14:16)
[2019-12-14] MEDS ORDERED: QUET50TA22 PO (14:16)
[2019-12-14] MEDS ORDERED: METF-950 PO (14:16)
[2019-12-14] MEDS ORDERED: INSU100V11 SQ (14:16)
--- NOTE | 2019-12-14 14:57 | NUR ---
Nursing Progress Note: Legal hold: 5250 Client on involuntary status for DTS Report received from nurse with use of SBAR: Viry Dyson RN Why are they here: Pt presented to the ER complaining of suicidal ideation. Patient reports he has pretty much lost everything and everyone and he no longer wants to be around anymore. He had a plan to take sleeping pills which he has in his car. Hx of OD x1. When asked if he has any friends or family patient reports that he has brothers but states that "they are not family." He has a history of [place] 8 to 9 years ago with 4 stents placed. Assessment What has happened this shift: Pt. awakens and heads into the group room for breakfast, he presents with less fatigue and is more visible on the unit than the previous shift. He sits up in the Group Room for most of the day watching TV, however is not observed to be interacting with others. 1:1 completed, pt. continues to be guarded, and to be minimizing any MH s/s. He again denies S/I, depression, or anxiety and states, "I just feel tired." When questioned again regarding his discharge plans, pt. reports that he might discharge Tuesday to the [facility]. 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 Pt. presents as somewhat more hopeful and appears to be looking forward to the future. S/I, H/I: Denies A/VH: Denies, does not appear to be internally preoccupied Sleep: Pt. reports he slept well, sleep hours show 7 hours ADL's: Independent Group attendance: No Were meds taken: Yes Any med S/E: None Mental Status Exam Appearance: Neat and appropriately dressed Eye contact: Fair Behavior: Cooperative, fatigued, and withdrawn Speech: Soft, WNL Mood: Guarded Affect: Flat Thought process: Poverty of thought Thought Content: Appears to be minimizing any MH s/s Cognition: A&O Insight: Poor Judgment: Poor to fair Interventions PRN's used: None Therapeutic interventions: Maintained a safe and therapeutic environment, ensured contract for safety, provided clear and simple instructions, provided active listening and positive encouragement, monitored blood sugar and administered insulin per protocol, monitored behavior and need for intervention, and maintained Q 15min safety checks. Restraints/seclusion/emergency medication: N/A Justification of Continued Inpatient Treatment: STEPHANIE Tapia, pt. remains a risk for discharge r/t his limited finances inability to afford his medications at this time. He continues to require a safe and supportive environment.
[2019-12-14 19:46] VITALS: BP 135/80
[2019-12-14] MEDS: mirtazapine 15mg tablet PO SCH (20:54)
[2019-12-14] MEDS: QUEtiapine 25mg tablet PO SCH ×2 (20:54→21:40)
[2019-12-14] MEDS: insulin glargine (Lantus) pen - multi-dose SQ SCH (21:43)
--- NOTE | 2019-12-14 23:18 | NUR ---
Nursing Progress Note: Legal hold: 5250 Client on involuntary status for DTS Report received from nurse with use of SBAR: JENNIFER Carlisle Why are they here: Pt presented to the ER complaining of suicidal ideation. Patient reports he has pretty much lost everything and everyone and he no longer wants to be around anymore. He had a plan to take sleeping pills which he has in his car. Hx of OD x1. When asked if he has any friends or family patient reports that he has brothers but states that "they are not family." He has a history of [place] 8 to 9 years ago with 4 stents placed. Assessment What has happened this shift: Pt was in recreation room watching TV. When asked how he was doing he states I'm doing alright, just bored, there's not much to do here. Pt states that he feels a little better but still depressed. Denies S/I, H/I, AV/H. He was cooperative during 1:1 physical assessment and took all his HS meds without any issues. He did complain of some chest pain but he states that this is pretty normal for him and nothing new. He did not engage in conversation and answered questions but very minimally. He mainly kept to himself as he did not socialized with other patients or staff. Pt requested a second dose of Seroquel again. He spent some more time watching TV before going to sleep. S/I, H/I: Denies A/VH: Denies Sleep: Currently sleeping, see sleep assessment for total hours. ADL's: Independent Group attendance: No Were meds taken: Yes Any med S/E: None observed or reported Mental Status Exam Appearance: Appropriately dressed, well groomed, wearing green unit scrubs Eye contact: Direct Behavior: Cooperative, isolative, guarded, withdrawn Speech: Soft, normal rate and rhythm, minimal Mood: Pt states that he is doing better today, not as depressed Affect: Blunted Thought process: Linear Thought Content: Medication, discharge plans Cognition: Alert and oriented X4 Insight: Fair Judgment: Poor to fair Interventions PRN's used: Seroquel X2 Therapeutic interventions: Maintained a safe and therapeutic environment, ensured contract for safety, provided clear and simple instructions, provided active listening and positive encouragement, monitored behavior and need for intervention, and maintained Q 15min safety checks. Restraints/seclusion/emergency medication: N/A Justification of Continued Inpatient Treatment: Per STEPHANIE Pereira, pt. remains hopeless and continues to require a safe and therapeutic environment. He will consider discharge in 24-48 hours.
[2019-12-15 07:00] VITALS: BP 112/63
[2019-12-15] MEDS: metoprolol tartrate 50mg tablet PO SCH ×2 (08:00→20:41)
[2019-12-15] MEDS: atorvastatin 20mg tablet PO SCH (08:09)
[2019-12-15] MEDS: duloxetine 30mg CAPSULE.DR PO SCH (08:10)
[2019-12-15] MEDS: apixaban 5mg tablet PO SCH ×2 (08:10→20:40)
[2019-12-15] MEDS: metFORMIN 500mg tablet PO SCH ×2 (08:10→20:40)
[2019-12-15] MEDS: gabapentin 300mg capsule PO SCH ×2 (08:11→20:40)
[2019-12-15] MEDS: naproxen 500mg tablet PO SCH ×2 (08:11→17:32)
[2019-12-15] MEDS: insulin Lispro (HumaLOG) vial - multi-dose SQ SCH ×3 (09:12→18:04)
--- NOTE | 2019-12-15 18:10 | NUR ---
Nursing Progress Note: Legal hold: 5250 Client on involuntary status for DTS Report received from JENNIEFR Morrison with use of SBAR: Why are they here: Pt presented to the ER complaining of suicidal ideation. Patient reports he has pretty much lost everything and everyone and he no longer wants to be around anymore. He had a plan to take sleeping pills which he has in his car. Hx of OD x1. When asked if he has any friends or family patient reports that he has brothers but states that "they are not family." He has a history of [place] 8 to 9 years ago with 4 stents placed. Assessment What has happened this shift: Pt was sleeping at beginning of shift. After breakfast he went to TV room and was there most of the day. He was pleasant and cooperative. He denies SI/HI but gives very brief responses and does not want to elaborate. He was isolative and did not want to go outside with the group if they went today. He briefly talks about sports with RN. Denies further chest pain. Pt on Diabetic protocol remaining at Level 5 through the day with insulin given. S/I, H/I: Denies A/VH: Denies Sleep: 7 h per noc assessment ADL's: Independent Group attendance: No groups at this time Were meds taken: Yes Any med S/E: None observed or reported Mental Status Exam Appearance: Wearing unit scrubs Eye contact: Direct Behavior: Isolative, withdrawn Speech: WNL Mood: Ok Affect: Congruent to mood Thought process: Linear Thought Content: Unable to assess. Cognition: Alert and oriented X4 Insight: Fair Judgment: Poor to fair Interventions PRN's used: none Therapeutic interventions: Maintained a safe and therapeutic environment, ensured contract for safety, provided clear and simple instructions, provided active listening and positive encouragement, monitored behavior and need for intervention, and maintained Q 15min safety checks. Restraints/seclusion/emergency medication: N/A Justification of Continued Inpatient Treatment: Per STEPHANIE Pereira, pt. remains hopeless and continues to require a safe and therapeutic environment. He will consider discharge in 24-48 hours.
[2019-12-15 19:27] VITALS: BP 123/69
[2019-12-15] MEDS: QUEtiapine 25mg tablet PO SCH ×2 (20:40→21:20)
[2019-12-15] MEDS: mirtazapine 15mg tablet PO SCH (20:40)
[2019-12-15] MEDS: insulin glargine (Lantus) pen - multi-dose SQ SCH (21:23)
--- NOTE | 2019-12-15 22:55 | NUR ---
Nursing Progress Note: Legal hold: 5250 Client on involuntary status for DTS Report received from nurse with use of SBAR: JENNIFER Carlisle Why are they here: Pt presented to the ER complaining of suicidal ideation. Patient reports he has pretty much lost everything and everyone and he no longer wants to be around anymore. He had a plan to take sleeping pills which he has in his car. Hx of OD x1. When asked if he has any friends or family patient reports that he has brothers but states that "they are not family." He has a history of [place] 8 to 9 years ago with 4 stents placed. Assessment What has happened this shift: Pt was in community room watching TV with a blanket wrapped around him. States hes doing good. Pt denies any depression, anxiety, or S/I, H/I. He was cooperative during 1:1 physical assessment and took all his HS meds without any issues. He appears to be in a good mood however he is still not engaging in conversation. He continues to isolate whether it be in his room or recreation room. He is still hoping to be discharged on Tuesday. Will continue to monitor. S/I, H/I: Denies A/VH: Denies Sleep: Currently sleeping, see sleep assessment for total hours. ADL's: Independent Group attendance: No Were meds taken: Yes Any med S/E: None observed or reported Mental Status Exam Appearance: Appropriately dressed, well groomed, wearing green unit scrubs, wrapped in a blanket Eye contact: Direct Behavior: Cooperative, isolative, guarded, withdrawn Speech: Soft, normal rate and rhythm, minimal Mood: "I'm good." Affect: Blunted Thought process: Linear Thought Content: Medication, whatever he is watching on TV Cognition: Alert and oriented X4 Insight: Fair Judgment: Poor to fair Interventions PRN's used: Seroquel X2 Therapeutic interventions: Maintained a safe and therapeutic environment, ensured contract for safety, provided clear and simple instructions, provided active listening and positive encouragement, monitored behavior and need for intervention, and maintained Q 15min safety checks. Restraints/seclusion/emergency medication: N/A Justification of Continued Inpatient Treatment: Per STEPHANIE Pereira, pt. remains hopeless and continues to require a safe and therapeutic environment. He will consider discharge in 24-48 hours.
[2019-12-16 07:40] VITALS: BP 115/64
[2019-12-16] MEDS: insulin Lispro (HumaLOG) vial - multi-dose SQ SCH ×3 (08:36→17:51)
[2019-12-16] MEDS: apixaban 5mg tablet PO SCH ×2 (08:39→21:03)
[2019-12-16] MEDS: atorvastatin 20mg tablet PO SCH (08:39)
[2019-12-16] MEDS: metoprolol tartrate 50mg tablet PO SCH ×2 (08:39→21:03)
[2019-12-16] MEDS: metFORMIN 500mg tablet PO SCH ×2 (08:39→21:03)
[2019-12-16] MEDS: duloxetine 30mg CAPSULE.DR PO SCH (08:39)
[2019-12-16] MEDS: gabapentin 300mg capsule PO SCH ×2 (08:40→21:01)
[2019-12-16] MEDS: naproxen 500mg tablet PO SCH ×2 (08:40→17:48)
--- NOTE | 2019-12-16 14:24 | NUR ---
Nursing Progress Note: Legal hold: 5250 Client on involuntary status for DTS Report received from nurse with use of SBAR: Viry Dyson RN Why are they here: Pt presented to the ER complaining of suicidal ideation. Patient reports he has pretty much lost everything and everyone and he no longer wants to be around anymore. He had a plan to take sleeping pills which he has in his car. Hx of OD x1. When asked if he has any friends or family patient reports that he has brothers but states that "they are not family." He has a history of [place] 8 to 9 years ago with 4 stents placed. Assessment What has happened this shift: Pt. awakens and heads to breakfast in the Group Room as is his normal routine. He continues to sit up in the Group Room for most of the day watching TV, interacting minimally with others. 1:1 completed, pt. continues to be very guarded in conversation. He denies any S/I, depression, or anxiety and continues to minimize any MH s/s. When questioned again regarding discharge, pt. reports that he feels ready to go once they get his medications and finances straightened out. Per STEPHANIE Pereira the plan to consider discharge sometime next week. BS remains slightly elevated, and pt. has now been moved to Level 6 on the diabetic protocol, will endorse to Noc shift. S/I, H/I: Denies A/VH: Denies, does not appear to be internally preoccupied Sleep: Pt. reports he slept well, sleep hours show 7 hours ADL's: Independent Group attendance: No Were meds taken: Yes Any med S/E: None Mental Status Exam Appearance: Neat and appropriately dressed Eye contact: Fair Behavior: Cooperative, fatigued, and withdrawn Speech: Soft, WNL Mood: Guarded Affect: Flat Thought process: Poverty of thought Thought Content: Appears to be minimizing any MH s/s Cognition: A&O Insight: Poor Judgment: Fair Interventions PRN's used: None Therapeutic interventions: Maintained a safe and therapeutic environment, ensured contract for safety, provided clear and simple instructions, provided active listening and positive encouragement, monitored blood sugar and administered insulin per protocol, monitored behavior and need for intervention, and maintained Q 15min safety checks. Restraints/seclusion/emergency medication: N/A Justification of Continued Inpatient Treatment: Per STEPHANIE Pereira, pt. remains a risk for discharge r/t his limited finances inability to afford his medications at this time. He continues to require a safe and supportive environment.
[2019-12-16 19:00] VITALS: BP 113/72
[2019-12-16] MEDS: mirtazapine 15mg tablet PO SCH (21:02)
[2019-12-16] MEDS: insulin glargine (Lantus) pen - multi-dose SQ SCH (21:14)
[2019-12-16] MEDS ORDERED: quetiapine 100mg tablet PO ONE ×2 (21:20→22:00)
--- NOTE | 2019-12-17 01:06 | NUR ---
Nursing Progress Note: Legal hold: 5250 Client on involuntary status for DTS Report received from nurse with use of SBAR: Orestes RN Why are they here: Pt presented to the ER complaining of suicidal ideation. Patient reports he has pretty much lost everything and everyone and he no longer wants to be around anymore. He had a plan to take sleeping pills which he has in his car. Hx of OD x1. When asked if he has any friends or family patient reports that he has brothers but states that "they are not family." He has a history of [place] 8 to 9 years ago with 4 stents placed. Assessment What has happened this shift: Pt was in group room at change of shift. Spent evening watching tv before going to bed. Pt is pleasant denies s/i, denies depression. pt is quiet and doesnt ellaborate much when asked questions. Pt seems to be preoccupied with tv shows. Pt is med compliant. Pt BS was 119 at HS. Lantus given. Pt began level 6 today. Pt reports not being able to sleep w/out receiving seroquel HS, dose was repeated x1. S/I, H/I: Denies A/VH: Denies, does not appear to be internally preoccupied Sleep: see sleep hours ADL's: Independent Group attendance: No Were meds taken: Yes Any med S/E: None Mental Status Exam Appearance: Neat and appropriately dressed Eye contact: Fair Behavior: Cooperative, isolates to self Speech: Soft, WNL Mood: Guarded Affect: constricted Thought process: Poverty of thought Thought Content: mariangel, minimal response to questions Cognition: A&O Insight: Poor Judgment: Fair Interventions PRN's used: None Therapeutic interventions: Maintained a safe and therapeutic environment, ensured contract for safety, provided clear and simple instructions, provided active listening and positive encouragement, monitored blood sugar and administered insulin per protocol, monitored behavior and need for intervention, and maintained Q 15min safety checks. Restraints/seclusion/emergency medication: N/A Justification of Continued Inpatient Treatment: Per STEPHANIE Pereira, pt. remains a risk for discharge r/t his limited finances inability to afford his medications at this time. He continues to require a safe and supportive environment.
[2019-12-17 07:00] VITALS: BP 107/50
[2019-12-17 07:37] VITALS: BP_SYST 109
[2019-12-17] MEDS: gabapentin 300mg capsule PO SCH (07:37)
[2019-12-17] MEDS: apixaban 5mg tablet PO SCH (07:37)
[2019-12-17] MEDS: duloxetine 30mg CAPSULE.DR PO SCH (07:37)
[2019-12-17] MEDS: metFORMIN 500mg tablet PO SCH (07:37)
[2019-12-17] MEDS: atorvastatin 20mg tablet PO SCH (07:37)
[2019-12-17] MEDS: metoprolol tartrate 50mg tablet PO SCH (07:37)
[2019-12-17] MEDS: naproxen 500mg tablet PO SCH ×2 (08:54→16:56)
[2019-12-17] MEDS: insulin Lispro (HumaLOG) vial - multi-dose SQ SCH ×3 (09:00→18:20)
--- NOTE | 2019-12-17 16:00 | NUR ---
Nursing Progress Note: Legal hold: 5250 Client on involuntary status for DTS Report received from nurse with use of SBAR: KRYSTLE Espino Why are they here: Pt presented to the ER complaining of suicidal ideation. Patient reports he has pretty much lost everything and everyone and he no longer wants to be around anymore. He had a plan to take sleeping pills which he has in his car. Hx of OD x1. When asked if he has any friends or family patient reports that he has brothers but states that "they are not family." He has a history of [place] 8 to 9 years ago with 4 stents placed. Assessment What has happened this shift: Patient sat in group room for breakfast, was cooperative for physical assessment and medications. Patient moved to rec room and watched TV, minimally interacting with others. Patient pleasant, withdrawn. Denies suicidal ideation or having any current plan. Pt states I have not thought that way in long time. Pt denies having any thoughts of harming others. Pt states I am just waiting to be able to get out of here and plan to go to [place] and go back to work. Patient appears withdrawn, crossing his arms and sitting in front of the television for majority of the afternoon, with minimal interaction. Pt does not seem interested in engaging in much conversation. S/I, H/I: Denies A/VH: Denies, does not appear to be internally preoccupied Sleep: Pt. reports he slept well, sleep hours show 7 hours ADL's: Independent Group attendance: No Were meds taken: Yes Any med S/E: None Mental Status Exam Appearance: Neat and appropriately dressed Eye contact: Fair Behavior: Cooperative, fatigued, and withdrawn Speech: Soft, WNL Mood: Guarded Affect: Flat Thought process: Poverty of thought Thought Content: Appears to be minimizing any MH s/s Cognition: A&O Insight: Poor Judgment: Fair Interventions PRN's used: None Therapeutic interventions: Maintained a safe and therapeutic environment, ensured contract for safety, provided clear and simple instructions, provided active listening and positive encouragement, monitored blood sugar and administered insulin per protocol, monitored behavior and need for intervention, and maintained Q 15min safety checks. Restraints/seclusion/emergency medication: N/A Justification of Continued Inpatient Treatment: Per STEPHANIE Periera, pt. remains a risk for discharge r/t his limited finances inability to afford his medications at this time. He continues to require a safe and supportive environment.
--- NOTE | 2019-12-17 17:07 | NUR ---
Discharge Presenting Issues: Pt has [place] Medicaid therefore, he is unable to access medication following d/c. Interventions: SS met w/t pt and discussed current issues re medication following d/c, per discussion pt expressed a desire to d/c anyway, "I'd like to discharge anyway, if possible I'd like to go tonight with some money for gas." Provided information re how to access emergent care via ED as pt plans to drive to [place]. SS consulted w/attending PA, per consultation, pt will d/c tonight. Plan: Pt to d/c tonight w/o meds as he has no way to pay for them. Manuela Colon LCSW Addendum: 12/17/19 at 1719 by Manuela Colon Amended: Links added.
--- NOTE | 2019-12-17 19:28 | NUR ---
Pt discharged at 1900, given all belongings, went over discharge meds and instructions, pt knows to go to [facility] on [address] to grape picker his meds.
--- NOTE | 2019-12-18 08:43 | NUR ---
Pt's d/c, SS referral is closed. Manuela Colon [facility] ATTENDANT Addendum: 12/18/19 at 0843 by Manuela Colon SS Amended: Links added.
== END 2019-12-17 19:00 | disposition home or self-care (01) | DRG 751 ==
LOC: ADULT MH 10:22 → EEVIPCON 10:22 → PCU 3S 12-04 21:25 → ADULT MH 12-05 19:40
PROVIDERS: ADMIT Psychiatry & Neurology Psychiatry; ATTEND Psychiatry & Neurology Psychiatry
DX: F33.2 Major depressive disorder, recurrent severe without psychotic features (principal); I26.99 Other pulmonary embolism without acute cor pulmonale; R45.851 Suicidal ideations; F43.10 Post-traumatic stress disorder, unspecified; E78.5 Hyperlipidemia, unspecified; G47.00 Insomnia, unspecified; F17.210 Nicotine dependence, cigarettes, uncomplicated; H33.22 Serous retinal detachment, left eye; E11.65 Type 2 diabetes mellitus with hyperglycemia; E11.59 Type 2 diabetes mellitus with other circulatory complications; F41.8 Other specified anxiety disorders; I25.10 Atherosclerotic heart disease of native coronary artery without angina pectoris; I10 Essential (primary) hypertension; G89.29 Other chronic pain; F41.0 Panic disorder [episodic paroxysmal anxiety]; I25.2 Old myocardial infarction; Z79.01 Long term (current) use of anticoagulants; Z79.4 Long term (current) use of insulin; Z79.899 Other long term (current) drug therapy; Z82.49 Family history of ischemic heart disease and other diseases of the circulatory system; Z88.0 Allergy status to penicillin; Z95.5 Presence of coronary angioplasty implant and graft; Z71.6 Tobacco abuse counseling; Z56.0 Unemployment, unspecified
CPT/HCPCS: 36415; 80053; 80061; 82948; 83036; 83735; 84100; 84132; 84484; 85025; 85610; 85730; 87081; 93005; 93306; 93970; 99285; G0378; J1815